=== PATIENT | female | born 2000 | race Caucasian/White ===

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

== ENCOUNTER 2020-05-19 20:09 | Inpatient (IN) | payer MEDICAID, SELFPAY ==
[2020-05-19] VITALS (8 sets, daily range): BP systolic 112–135; BP diastolic 53–72; PULSE 67–126; TEMP 36.1–36.8; O2SAT 96–99; BMI 34.5
[2020-05-19] MEDS: Lactated Ringers 500 ML 999 ML IV (20:30)
[2020-05-19 20:53] LABS: Absolute Lymphocyte Count 1.88 X10^3/uL (0.83-4.51); Basophil# 0.02 X10^3/uL; Basophil% 0.2 % (0-1); Eosinophil# 0.08 X10^3/uL; Eosinophils% 0.9 % (0-5); Hematocrit 33.7 % (37-47); Hemoglobin 11.1 g/dL (12.0-15.0); Lymphocyte # 1.88 X10^3/ul (4.0); Lymphocyte % 21.4 % (19-41); Mean Corp Hgb Conc 32.9 g/dL (32-36); Mean Corpuscular Hgb 29.8 pg (27.0-32.0); Mean Corpuscular Volume 90.6 fL (81-99); Mean Platelet Vol. 10.7 fl (6.2-12.0); Monocyte# 0.79 X10^3/uL; NRBC Flagged by Analyzer 0 % (0-5); Neutrophil # 5.96 X10^3/uL (2.7-7.7); Neutrophil % 67.9 % (47-70); Platelet Count 150 K/mm3 (150-450); RBC Distribution Width CV 13.5 % (11.6-14.6); RBC Distribution Width SD 44.6 fl (35.1-43.9); Red Blood Count 3.72 M/mm3 (4.2-5.4); White Blood Count 8.8 K/mm3 (4.4-11.0)
[2020-05-19] MEDS: Lactated Ringers 1,000 ML 50 ML IV (21:01)
--- NOTE | 2020-05-19 21:19 | PCM.HP.OB ---
- Problem List (1) 39 weeks gestation of Status: Acute (2) Spontaneous onset of labor Status: Acute History Date of Admission: 05/19/20 Final YESSY: 05/31/20 Gestational age: 38 Weeks and 2 Days History of this : This is a 20 year-old, G [2], P [0], at 38.2 weeks gestational age that arrived to unit in active labor. Denies loss of fluid, vaginal bleeding and stated positive movement. Stated back started hurting earlier today and it won't let up. course complicated by anemia. Allergies No Known Allergies Allergy (Verified 11/28/15 16:02) Home Medications: Home Medications Ibuprofen [Children's Advil] 1 - 2 tab PO BID 11/28/15 Docusate Sodium [Colace] 100 mg PO BID PRN PRN #10 capsule 12/04/15 Hydrocodone Bitart/Apap 5-325 [Eden 5/325] 1 - 2 tablet PO Q6H PRN PRN #60 tablet 12/04/15 proMETHazine tablet [Phenergan] 25 mg PO Q4H PRN PRN #10 tablet 12/04/15 Smoking Status: Former smoker Number of Fetus(es): 1 NST - FHR Rate Baby A Baseline: 135 Variability:: Moderate Accelerations:: 15 x 15 Decelerations:: None NST Reactive:: Yes FHR Category:: Category I Uterine Activity:: Irregular contractions. Difficult to trace due to patient moving around History Past Pregnancies: Past Pregnancies Delivery Date Name GA/ Weeks Outcome Route Wt Infant Sex Labor Length Anesthesia Delivery Location Provider FOB Labs: A positive Rubella Immune Hb negative HIV NR RPR- NR HIV- NR GBS negative GC/CH= negative Expected Delivery Method: Spontaneous Vaginal Review of Systems Constitutional: Denies: Chills, Fever, Weight Change Cardiovascular: Denies: Chest Pain, Palpitations Respiratory: Denies: Cough, Shortness of breath at rest, Sputum production Gastrointestinal: Denies: Abdominal Pain, Nausea, Vomiting Genitourinary: Denies: Dysuria Neurological: Reports: Focal weakness. Denies: Headaches, Numbness, Tingling Physical Exam Vitals: Vital Signs Temp Pulse BP Pulse Ox 98.2 F 75 128/72 H 99 05/19/20 20:23 05/19/20 20:23 05/19/20 20:23 05/19/20 20:23 General: Alert, Oriented x3, No apparent distress Cardiovascular: Regular rate Lungs: Normal air movement Abdomen: Gravid Neurological: Cranial nerves II-XII grossly intact LONGWALL SHEARER OPERATOR: Normal external genitalia Estimated gestational size: Appropriate for gestational size Presentation: Cephalic Cervix Dilation (cm): 7 Station: -1 Effacement (%): 80 Assessment/Plan All Active Problems 39 weeks gestation of (Acute) Spontaneous onset of labor (Acute) This is a 20 year-old, G [2], P [0], at 38. 2 weeks gestational age in active labor. A: Active labor Category 1 tracing P: Admit to labor and delivery Routine labs GBS negative IV fluids per protocol Covid19 Rapid swab Pain medications or epidural if patient desires A.R.O.M for moderate amount of clear fluid
[2020-05-19] MEDS: Oxytocin 30 units/NS 500 ml 30 UNITS/500 ML IV.SOLN 334 UNITS IV (23:27)
[2020-05-19] MEDS: Methylergonovine 0.2 MG/ML Ampul IM (23:40)
[2020-05-19] MEDS: miSOPROStol 200 MCG Tablet 1000 MCG RECTAL (23:46)
[2020-05-19] MEDS: Carboprost Tromethamine 250 MCG/ML Ampul IM (23:48)
[2020-05-20] VITALS (48 sets, daily range): BP systolic 99–131; BP diastolic 55–73; PULSE 60–84; RESP 16; TEMP 36–37.8; O2SAT 94–100
--- NOTE | 2020-05-20 00:01 | PCM.PN.BLA ---
Progress Note i was present for delivery- placenta delivered and evaluated- appeared to be intact. vagina and cervix evaluated- small 1st degree laceration appreciated superior to clitoris- repaired with a figure of eight on 3-0 rapide. Good hemostasis. Cervix intact. still with moderate bleeding and atony- Methergine 0.2mg IM given followed by Cytotec 1000mc PER rectum, followed by Hemabate 250mcg in given in lower uterine segment. continued pitocin and uterine massage, bleeding began to slow. bedside ultrasound performed- Does not appear to have Retained POC. Will check CBC in morning. Bleeding stable prior to me leaving hospital. STROKE Vital Signs/Narrative: Vital Signs Temp Pulse BP Pulse Ox 05/19/20 23:59 82 96 05/19/20 23:57 126 H 112/53 L 05/19/20 23:54 81 97 05/19/20 23:49 98 98 05/19/20 23:48 92 135/60 H 05/19/20 21:55 72 127/63 H 05/19/20 21:54 97.0 F L 67 96 05/19/20 20:23 98.2 F 75 128/72 H 99
--- NOTE | 2020-05-20 00:10 | PCM.OPRPT ---
Problem List (1) 39 weeks gestation of Status: Acute (2) Spontaneous onset of labor Status: Acute Report of Operation Date of Procedure: 05/20/20 Pre-Operative Diagnosis: Term gestation, Spontaneous labor, anemia Post-Operative Diagnosis: same, viable male infant Surgery/Procedure Performed:: Vaginal Delivery Maternal Presentation: Active Labor Patient is a at 38.2 weeks gestation presented in spontaneous, active labor Amniotic Membrane Rupture Type: Artificial Amniotic Fluid Description: Clear Gestational age: 38.2 Date of Procedure: 05/20/20 Pre-Operative Diagnosis: Term, spontaneous labor Post-Operative Diagnosis: same, viable male Surgery/ Procedure Performed: Spontaneous Vaginal Delivery Type of Anesthesia: None Description of Procedure: of live male born without difficulty. Good maternal pushing efforts delivered head. Gentle downward traction with delivery of anterior shoulder followed by rest of body delivered in somersault maneuver due to tight nuchal cord. Vigorous placed on maternal abdomen. Delayed cord clamping performed. Placenta delivered spontaneously with assistance from Dr Waller. Dr. Waller present in room and delivered placenta (see progress note). Patient was given Methergine 0.2 mg IM x1, Cytotec 1000 mcg VT and Hemabate 250 mcg IM for uterine atony. Hemostasis occurred. Will order CBC for morning. Presentation: KEYANA Placental Delivery Description: Spontaneous, Expressed Placenta Disposition: [facility] Cord Vessel Description: 3 Vessels Cord Entanglement: Around neck x 1, tight Estimated Blood Loss: 600 Infant A gender: Male - [place] (1 minute): 9 (5 minute): 9 Episiotomy Description: None Laceration: Vaginal Extension/lac, 1st degree Medications given after delivery: IV Pitocin, IM Methergin, IM Hemabate, - - Cytotec 1000mcg VT Complications: None - Uterine atony
[2020-05-20] MEDS: Oxytocin 30 units/NS 500 ml 30 UNITS/500 ML IV.SOLN 167 UNITS IV (00:11)
[2020-05-20] MEDS: Acetaminophen 500 MG Tablet 1000 MG PO (01:18)
[2020-05-20 06:50] LABS: Hematocrit 34.7 % (37-47); Hemoglobin 11.1 g/dL (12.0-15.0); Mean Corpuscular Hgb 29.3 pg (27.0-32.0); Mean Corpuscular Volume 91.6 fL (81-99); Mean Platelet Vol. 10.8 fl (6.2-12.0); Platelet Count 159 K/mm3 (150-450); RBC Distribution Width CV 13.4 % (11.6-14.6); RBC Distribution Width SD 45.3 fl (35.1-43.9); Red Blood Count 3.79 M/mm3 (4.2-5.4); White Blood Count 16.3 K/mm3 (4.4-11.0)
--- NOTE | 2020-05-20 07:58 | PCM.PN.OB ---
Patient Problems: Active and Suspected Problems 39 weeks gestation of (Acute) Spontaneous onset of labor (Acute) Subjective: Seen at bedside. Patient sleeping sound. Feeling sore but pain controlled. infant. Voiding without difficulty Lochia decreased. Not passing any clots. - Physical Exam Vitals/I&O's: Vital Signs Temp Pulse Resp BP Pulse Ox 100.0 F H 70 16 128/65 H 97 05/20/20 07:52 05/20/20 07:52 05/20/20 07:52 05/20/20 07:52 05/20/20 07:52 Oxygen Delivery Method Room Air Weight: 227 lb 1.218 oz Body Mass Index (BMI) 34.5 Intake and Output for Last 24 Hours 05/18/20 05/19/20 05/20/20 23:59 23:59 23:59 Intake Total 694.04 / 694.04 927.63 / 927.63 Balance 694.04 / 694.04 927.63 / 927.63 General: Alert Lungs: Normal air movement Cardiovascular: Regular rate Abdomen: Soft, Non Tender Neurological: Cranial nerves II-XII grossly intact Psych/Mental Status: Normal Affect, Appropriate Laboratory Results 05/19/20 20:30: WBC 8.8, RBC 3.72 L, Hgb 11.1 L, Hct 33.7 L, MCV 90.6, MCH 29.8, MCHC 32.9, RDW Std Deviation 44.6 H, RDW Coeff of Ord 13.5, Plt Count 150, MPV 10.7, Immature Gran % (Auto) 0.600, Neut % (Auto) 67.9, Lymph % (Auto) 21.4, [place] % (Auto) 9.0, Eos % (Auto) 0.9, Baso % (Auto) 0.2, Absolute Neuts (auto) 6.0, Absolute Lymphs (auto) 1.88, Nucleated RBC % 0 05/19/20 20:30: Blood Type A POSITIVE, Antibody Screen NEGATIVE 05/19/20 21:00: COVID-19 (JOSSY) Not Detected 05/20/20 06:40: WBC 16.3 H, RBC 3.79 L, Hgb 11.1 L, Hct 34.7 L, MCV 91.6, MCH 29.3, MCHC 32.0, RDW Std Deviation 45.3 H, RDW Coeff of Rod 13.4, Plt Count 159, MPV 10.8 Current Medications Acetaminophen (Tylenol) 1,000 mg PO Q8H PRN PRN PRN Reason: Pain Score 1-3/10 Last Admin: 05/20/20 01:18 Dose: 1,000 mg Documented by: Bisacodyl (Dulcolax) 10 mg RECTAL UD PRN PRN Reason: If no BM Dibucaine (Dibucaine) 1 applic TOPICAL TID PRN PRN; Protocol PRN Reason: Discomfort Hydrocortisone (Hytone) 1 applic TOPICAL TID PRN PRN; Protocol PRN Reason: Discomfort Methylergonovine Maleate (Methergine) 0.2 mg IM X1 PRN PRN Reason: Excess bleeding/uterine atony Last Admin: 05/19/20 23:40 Dose: 0.2 mg Documented by: Naproxen (Naprosyn) 500 mg PO Q8H PRN PRN PRN Reason: Pain Score 1-3/10 Ondansetron HCl (Zofran) 4 mg IV Q4H PRN PRN PRN Reason: Nausea Oxycodone HCl (Oxyir) 5 - 10 mg PO Q4H PRN PRN PRN Reason: Pain Score 4-10/10 Senna/Docusate Sodium (Senokot-S, Ashlyn-Colace) 1 - 2 tablet PO DAILY PRN PRN PRN Reason: Constipation Simethicone (Mylicon) 80 mg PO PCHS PRN PRN Reason: Indigestion/Stomach pain Sodium Chloride () 5 - 15 ml IV UD PRN PRN Reason: SALINE FLUSH Medical Necessity - Tobacco Use Smoking Status: Former smoker Assessment/Plan All Active Problems 39 weeks gestation of (Acute) Spontaneous onset of labor (Acute) A/P PPD #1 Routine care Pain management Anticipate discharge home
[2020-05-21 00:10] VITALS: BP 116/55; PULSE 73; TEMP 36.4
[2020-05-21 00:18] VITALS: BP 116/55; PULSE 73; RESP 16; TEMP 36.4
[2020-05-21 04:20] VITALS: BP 111/56; PULSE 70; TEMP 37.3; TEMP 37.4
[2020-05-21 04:24] VITALS: BP 111/50; PULSE 70; RESP 16; TEMP 36.3
[2020-05-21 08:30] VITALS: BP 120/66; PULSE 68; RESP 16; TEMP 36.3
--- NOTE | 2020-05-21 08:50 | PCM.PN.OB ---
Patient Problems: Active and Suspected Problems 39 weeks gestation of (Acute) Spontaneous onset of labor (Acute) Subjective: pain well controlled, average lochia - Physical Exam Vitals/I&O's: Vital Signs Temp Pulse Resp BP Pulse Ox 97.4 F L 70 16 111/50 L 100 05/21/20 04:24 05/21/20 04:24 05/21/20 04:24 05/21/20 04:24 05/20/20 15:35 Oxygen Delivery Method Room Air Weight: 103 kg Body Mass Index (BMI) 34.5 Intake and Output for Last 24 Hours 05/19/20 05/20/20 05/21/20 23:59 23:59 23:59 Intake Total 694.04 / 694.04 927.63 / 927.63 Output Total 300 / 300 Balance 694.04 / 694.04 627.63 / 627.63 General: Alert, Cooperative, No apparent distress Current Medications Acetaminophen (Tylenol) 1,000 mg PO Q8H PRN PRN PRN Reason: Pain Score 1-3/10 Last Admin: 05/20/20 01:18 Dose: 1,000 mg Documented by: Bisacodyl (Dulcolax) 10 mg RECTAL UD PRN PRN Reason: If no BM Dibucaine (Dibucaine) 1 applic TOPICAL TID PRN PRN; Protocol PRN Reason: Discomfort Hydrocortisone (Hytone) 1 applic TOPICAL TID PRN PRN; Protocol PRN Reason: Discomfort Methylergonovine Maleate (Methergine) 0.2 mg IM X1 PRN PRN Reason: Excess bleeding/uterine atony Last Admin: 05/19/20 23:40 Dose: 0.2 mg Documented by: Naproxen (Naprosyn) 500 mg PO Q8H PRN PRN PRN Reason: Pain Score 1-3/10 Ondansetron HCl (Zofran) 4 mg IV Q4H PRN PRN PRN Reason: Nausea Oxycodone HCl (Oxyir) 5 - 10 mg PO Q4H PRN PRN PRN Reason: Pain Score 4-10/10 Senna/Docusate Sodium (Senokot-S, Ashlyn-Colace) 1 - 2 tablet PO DAILY PRN PRN PRN Reason: Constipation Simethicone (Mylicon) 80 mg PO PCHS PRN PRN Reason: Indigestion/Stomach pain Sodium Chloride () 5 - 15 ml IV UD PRN PRN Reason: SALINE FLUSH Medical Necessity - Tobacco Use Smoking Status: Former smoker Assessment/Plan All Active Problems 39 weeks gestation of (Acute) Spontaneous onset of labor (Acute) ppd #2 S/P Doing well routine care and doing well
--- NOTE | 2020-05-21 08:51 | DCINST_ITS ---
Discharge Diet: No Restrictions Discharge Activity: Return to Normal Activity, May not drive while taking narcotic pain medications., May Shower May resume sexual activity in: 4-6 weeks Additional Activity Instructions:: Nothing in the vagina for 4-6 weeks. You may return to work/school in 6 weeks. Call your doctor if your incision/area has: Continuous Slow Oozing, Sudden Increased Bleeding, Increased Pain/ Swelling, Increased Redness, Foul Smelling Discharge Additional Instructions: If you experience any of the following, contact your healthcare provider. * Bleeding that soaks a pad every hour for 2 hours * Fever 100.4 or higher * Unrelieved incision or abdominal pain * Swelling, redness, discharge or bleeding from your incision or episiotomy site * Your incision begins to separate * Problems urinating (including inability to urinate or burning while urinating). * Visual changes * Severe headache * Flu-like symptoms * Pain or redness in one of both of your breasts * Pain, warmth, tenderness or swelling in your legs, especially the calf area * Frequent nausea and vomiting * Symptoms of depression or anxiety If you experience any of the following, call 911 or go to the nearest Emergency Room. * Chest pain * Problems breathing * Seizure activity * Partial or complete paralysis of a body part, slurred speech, weakness or drooping of the face, or a sudden inability to walk or hold your balance Allergies/Adverse Reactions: Allergies No Known Allergies Allergy (Verified 05/19/20 21:42) Please Follow Up With: Deisy Ramirez MD - [phone] When: Call to make an appointment with your doctor in 1-2 and 6 weeks or as needed. These can be virtual visits. Primary Care Physician: Care Physician,No Primary [Primary Care Provider] - Test Results: Test results from this visit will be discussed in further detail at your follow- up appointment, if applicable.
--- NOTE | 2020-05-21 08:51 | PCM.DCVAG ---
Discharge Diet: No Restrictions Discharge Activity: Return to Normal Activity, May not drive while taking narcotic pain medications., May Shower May resume sexual activity in: 4-6 weeks Additional Activity Instructions:: Nothing in the vagina for 4-6 weeks. You may return to work/school in 6 weeks. Call your doctor if your incision/area has: Continuous Slow Oozing, Sudden Increased Bleeding, Increased Pain/ Swelling, Increased Redness, Foul Smelling Discharge Additional Instructions: If you experience any of the following, contact your healthcare provider. Bleeding that soaks a pad every hour for 2 hours Fever 100.4 or higher Unrelieved incision or abdominal pain Swelling, redness, discharge or bleeding from your incision or episiotomy site Your incision begins to separate Problems urinating (including inability to urinate or burning while urinating). Visual changes Severe headache Flu-like symptoms Pain or redness in one of both of your breasts Pain, warmth, tenderness or swelling in your legs, especially the calf area Frequent nausea and vomiting Symptoms of depression or anxiety If you experience any of the following, call 911 or go to the nearest Emergency Room. Chest pain Problems breathing Seizure activity Partial or complete paralysis of a body part, slurred speech, weakness or drooping of the face, or a sudden inability to walk or hold your balance Allergies/Adverse Reactions: Allergies No Known Allergies Allergy (Verified 05/19/20 21:42) Please Follow Up With: Deisy Ramirez MD - [phone] When: Call to make an appointment with your doctor in 1-2 and 6 weeks or as needed. These can be virtual visits. Primary Care Physician: Care Physician,No Primary [Primary Care Provider] - Test Results: Test results from this visit will be discussed in further detail at your follow-up appointment, if applicable.
[2020-05-21 08:57] VITALS: BP 120/66; PULSE 73; TEMP 36.3
[2020-05-21] MEDS: Dibucaine 30 GM Tube 1 APPLIC TOPICAL (09:10)
== END 2020-05-21 11:15 | disposition home or self-care (01) | DRG 560 ==
PROVIDERS: Admitting Provider Advanced Practice Midwife; Visit Provider Advanced Practice Midwife
DX: O99.02 Anemia complicating childbirth (principal); D64.9 Anemia, unspecified; O69.1XX0 Labor and delivery complicated by cord around neck, with compression, not applicable or unspecified; O62.2 Other uterine inertia; O70.0 First degree perineal laceration during delivery; Z3A.39 39 weeks gestation of pregnancy; Z37.0 Single live birth; Z87.891 Personal history of nicotine dependence
CPT/HCPCS: 59025; 85025; 85027; 86850; 86900; 86901; 87635; 99218; G2023; J7120; G0378; U0003

== ENCOUNTER 2022-06-04 08:44 | Emergency (ER) | payer OTHER, MEDICAID, SELFPAY ==
[2022-06-04 08:44] VITALS: BP 125/77; PULSE 64; RESP 16; TEMP 36.4; O2SAT 100; BMI 23.9
--- NOTE | 2022-06-04 09:20 | EX.ED.DYSGE1 ---
HPI History of Present Illness Chief Complaint: Lower Extremity Injury Narrative Narrative: Patient presents with left knee pain after twisting the wrong way and this is been ongoing for a few days, as it is difficult to climb steps as well as bend down on her knees to change her sense diaper. No other trauma. There is no radicular symptoms are any other injuries. PFSH PFSH Home Medications naproxen 500 mg tablet 500 mg PO BID #14 tabs 06/04/22 [Rx Last Taken Unknown] Allergy/AdvReac Type Severity Reaction Status Date / Time No Known Allergies Allergy Verified 06/04/22 08:45 Social History Smoking Status: Never smoker ROS ROS ED ROS Narrative Past medical history: none Medications: Reviewed Social history: Noncontributory Review of systems: Musculoskeletal: Knee pain as in HPI Skin: No abrasions or lacerations Neurological: No weakness or paresthesias Hematologic: No easy bleeding or easy bruising EXAM Physical Exam Narrative Exam Narrative: Physical exam General: Patient does not appear in significant distress . Head: Normocephalic, Atraumatic Neck: No C-spine tenderness Cardiovascular: Normal distal pulses Back: Nontender, Normal Inspection. Extremities: Left knee shows medial tenderness over the medial meniscus region. There is no other bony tenderness. No laxity on anterior posterior medial or lateral stressors. Patient has more pain with valgus then varus stressors. Skin: No abrasions, no lacerations Neurological: Normal strength and sensation Const Vital Signs: 06/04/22 08:44 Temperature 97.6 F L Temperature Source Temporal Pulse Rate 64 Respiratory Rate 16 Blood Pressure 125/77 H Blood Pressure Mean 93 Pulse Ox 100 Oxygen Delivery Method Room Air MDM MDM MDM Narrative Medical decision making narrative: Patient likely has a meniscal injury, I do not believe an x-ray would be necessary emergently at this time. She can follow-up with her PCP and get physical therapy if this does not improve in a few days. Otherwise I will place the patient on NSAIDs and should be discharged in stable condition. Discharge Plan Triage Chief Complaint: Lower Extremity Injury ED Provider: Ted Huynh Dx/Rx/DC Orders Clinical Impression: Knee strain, Acute medial meniscal injury of knee Instructions: How Your Knee Works, ED Knee Sprain Prescriptions: New naproxen 500 mg tablet 500 mg PO BID Qty: 14 0RF Primary Care Provider: Care Physician,No Primary Referrals: Karely Moreno MD [STAFF PHYSICIAN] - 3-5 Days Care Physician,No Primary [Primary Care Provider] - Disposition Disposition: Home, Self Care
== END 2022-06-04 09:43 | disposition home or self-care (01) ==
PROVIDERS: Emergency Provider Emergency Medicine; Visit Provider Emergency Medicine
DX: S83.242A Other tear of medial meniscus, current injury, left knee, initial encounter (principal); X50.1XXA Overexertion from prolonged static or awkward postures, initial encounter
CPT/HCPCS: 99282

== ENCOUNTER → 2022-06-27 | Outpatient (CLI) | payer OTHER, MEDICAID, SELFPAY ==
--- NOTE | 2022-06-27 10:58 | MRI_ITS ---
STUDY: MRI LEFT KNEE REASON FOR EXAM: Left medial knee pain, left knee injury 2 weeks ago. TECHNIQUE: Standardized fat and water weighted pulse sequences were obtained in all 3 orthogonal planes. COMPARISON: Radiographs 06/09/2022. FINDINGS: There is an oblique tear of the inferior articular surface of the posterior horn of the medial meniscus (proton-density sagittal images 10-16). Normal hyaline cartilage of the medial femorotibial compartment. Normal medial femoral condyle and tibial plateau. Normal medial collateral ligamentous complex (MCL). Normal distal semimembranosus, gracilis and semitendinosus tendons. Normal lateral meniscus. Normal hyaline cartilage of the lateral femorotibial compartment. Normal lateral femoral condyle and tibial plateau. Normal proximal tibiofibular articulation. Normal lateral collateral (fibular) ligament. Normal popliteus tendon. Normal biceps femoris tendon. Normal anterior cruciate ligament (ACL). Normal posterior cruciate ligament (PCL). Normal congruent patellofemoral articulation. Normal hyaline cartilage of the patellofemoral compartment. Normal medial and lateral patellar retinaculum. Normal visualized quadriceps tendon. Normal patellar tendon. Normal Hoffa''s fat pad. There is a minimal volume of fluid in the knee joint. The soft tissues are unremarkable. The otherwise visualized osseous structures are unremarkable. MRI/Lower Ext Joint Only (Routine) IMPRESSION: Medial meniscal tear. Electronically Signed: Morales Davis MD at 12:21 EDT ,
== END | disposition home or self-care (01) ==
LOC: MRI 10:58
PROVIDERS: Visit Provider Orthopaedic Surgery
DX: S83.242A Other tear of medial meniscus, current injury, left knee, initial encounter (principal); X58.XXXA Exposure to other specified factors, initial encounter
CPT/HCPCS: 73721

== ENCOUNTER 2023-05-23 20:28 | Outpatient (CLI) | payer MEDICAID, SELFPAY ==
[2023-05-23 20:43] VITALS: BP 116/66; PULSE 80
[2023-05-23 20:47] VITALS: TEMP 37.4; O2SAT 99
[2023-05-23 20:50] VITALS: BMI 29.9
[2023-05-23 21:22] LABS: ROM Internal Control Test YES-OK TO RESULT pt. (Internal QC); ROM Patient Test Negative (Negative); Record Kit Lot#, ROM+ K1374
[2023-05-23 21:35] LABS: Mucous, Urine 0 SEEN /hpf (<or=2+)
[2023-05-23 21:43] LABS: Color, Urine Yellow (Yellow); Glucose, Dipstick Normal (Normal); Ketone-Dipstick 50 mg/dl (Negative); Leukocyte Esterase-Dipstick 500 /ul (Negative); Nitrite-Dipstick Negative (Negative); Occult Blood-Urine 250 /ul (Negative); Protein-Dipstick 30 mg/dl (Negative); Urine Bilirubin Dipstick Negative (Negative); Urine Clarity Cloudy (Clear); Urine Urobilinogen Normal (Normal)
[2023-05-23 21:45] LABS: Bacteria 1+ /hpf (None Seen); Red Blood Cells-Urine 10-25 SEEN /hpf (0-5); Squamous Epithelial Cells - UA 0-5 SEEN /hpf (5-10); White Blood Cells 10-25 SEEN /hpf (0-5)
[2023-05-23] MEDS: LACTATED RINGERS 500 ML 999 ML IV (21:45)
[2023-05-23 22:11] VITALS: TEMP 36.9
[2023-05-23] MEDS: Cephalexin 250 MG Capsule PO (22:11)
--- NOTE | 2023-05-24 06:16 | OB.TRI.NOTE ---
HPI - General General Date of Admission: 05/24/23 Date of Service: 05/24/23 Chief Complaint: LOF HPI Narrative PAU MILTON, is a 23 F who presents because she thought she was leaking fluid overnight. Having urinary urgency and frequency and some pelvic discomfort. No fevers, chills, vomiting. No ctx, vb, lof. Good FM. PFSH PFSH Home Medications ferrous sulfate 325 mg (65 mg iron) tablet (iron) 325 mg PO BID anemia 05/23/23 [History Last Taken 05/23/23] [id number] 1 mg tablet 1 tab PO DAILY pregnacny 05/23/23 [History Last Taken 05/22/23] Allergy/AdvReac Type Severity Reaction Status Date / Time No Known Allergies Allergy Verified 06/09/22 08:28 Social History Smoking Status: Never smoker History Elective abortions Hx Para 0 Spontaneous abortions Hx # Term Pregnancies Ectopic pregnancies Hx # Pregnancies Multiple births # of living children NST FHR Rate Baby A Baseline: 120 Variability:: Moderate Accelerations:: 15 x 15 Decelerations:: None NST Reactive:: Yes Uterine Activity:: initially ctx q 4 min then spaced apart Assessment & Plan (1) 36 weeks gestation of : PLAN: Likely UTI given urine dip. Start Keflex. Send urine cx. Ctx's improved after fluid bolus and pt comfortable, and not feeling the ctx's. NST reactive. D/c home. (2) Urinary urgency:
== END 2023-05-23 23:43 | disposition home or self-care (01) ==
LOC: WPOUT 20:33 → WP 20:34
PROVIDERS: Referring Provider Obstetrics & Gynecology; Visit Provider Obstetrics & Gynecology
DX: O99.891 Other specified diseases and conditions complicating pregnancy (principal); R39.15 Urgency of urination; Z3A.36 36 weeks gestation of pregnancy
CPT/HCPCS: 96365; 59025; 59050; 81001; 84112; 87086; 87088; 99221; J7120; G0378

== ENCOUNTER 2023-06-09 17:40 | Inpatient (IN) | payer MEDICAID, SELFPAY ==
[2023-06-09] VITALS (16 sets, daily range): BP systolic 108–130; BP diastolic 59–76; PULSE 64–81; TEMP 36.2–36.8; O2SAT 97–100; BMI 30.2
[2023-06-09 18:29] LABS: Absolute Lymphocyte Count 1.86 X10^3/uL (0.83-4.51); Absolute Neutrophil Count 9.6 X10^3/uL (2.0-7.7); Basophil# 0.04 X10^3/uL; Basophil% 0.3 % (0-1); Eosinophil# 0.09 X10^3/uL; Eosinophils% 0.7 % (0-5); Hematocrit 32.3 % (37-47); Hemoglobin 10.3 g/dL (12.0-15.0); Lymphocyte # 1.86 X10^3/ul (0.83-4.51); Lymphocyte % 14.8 % (19-41); Mean Corp Hgb Conc 31.9 g/dL (32-36); Mean Corpuscular Hgb 28.4 pg (27.0-32.0); Mean Platelet Vol. 11.2 fl (6.2-12.0); Monocyte# 0.89 X10^3/uL; Monocyte% 7.1 % (0-10); NRBC Flagged by Analyzer 0 % (0-5); Neutrophil # 9.62 X10^3/uL (2.7-7.7); Neutrophil % 76.6 % (47-70); Platelet Count 168 K/mm3 (150-450); RBC Distribution Width CV 13.4 % (11.6-14.6); RBC Distribution Width SD 43.4 fl (35.1-43.9); Red Blood Count 3.63 M/mm3 (4.2-5.4); White Blood Count 12.6 K/mm3 (4.4-11.0)
[2023-06-09 19:22] LABS: Syphilis Antibodies Non-reactive
--- NOTE | 2023-06-09 21:02 | PCM.HP.OB ---
HPI - General General Date of Admission: 06/09/23 Date of Service: 06/09/23 HPI Narrative PAU MILTON, is a 23 F who presents with ctxs. Maternal Data Information Final YESSY: 06/17/23 Gestational age: 38&6 PFSH PFSH Home Medications ferrous sulfate 325 mg (65 mg iron) tablet (iron) 325 mg PO BID anemia 05/23/23 [History Last Taken 06/09/23] [id number] 1 mg tablet 1 tab PO DAILY pregnacny 05/23/23 [History Last Taken 06/09/23] Allergy/AdvReac Type Severity Reaction Status Date / Time No Known Allergies Allergy Verified 06/09/23 16:38 Surgical History (Updated 06/09/23 @ 18:25 by Adrianne Deluca) H/O knee surgery Social History Smoking Status: Former smoker History Elective abortions Hx Para 1 Spontaneous abortions Hx # Term Pregnancies Ectopic pregnancies Hx # Pregnancies Multiple births # of living children NST FHR Rate Baby A Baseline: 140 Variability:: Moderate Accelerations:: 15 x 15 Decelerations:: None Uterine Activity:: Q2-3 minutes Vital Signs Vital Signs Vital Signs: 06/09/23 16:35 06/09/23 16:35 06/09/23 16:35 Temperature 97.7 F L Temperature Source Temporal Pulse Rate Blood Pressure BP Systolic BP Diastolic Pulse Ox 97 06/09/23 16:35 06/09/23 16:48 06/09/23 16:48 Temperature Temperature Source Temporal Pulse Rate 76 Blood Pressure 126/76 H BP Systolic 126 BP Diastolic 76 Pulse Ox 06/09/23 16:35 06/09/23 16:35 06/09/23 18:44 Temperature 97.7 F L Temperature Source Pulse Rate Blood Pressure 118/70 BP Systolic 118 BP Diastolic 70 Pulse Ox 98 06/09/23 18:44 06/09/23 18:44 06/09/23 18:44 Temperature 97.1 F L Temperature Source Pulse Rate 75 Blood Pressure BP Systolic BP Diastolic Pulse Ox 100 06/09/23 19:21 06/09/23 19:21 06/09/23 19:21 Temperature Temperature Source Temporal Pulse Rate 73 Blood Pressure 121/67 H BP Systolic 121 BP Diastolic 67 Pulse Ox 06/09/23 19:21 07/11/23 20:08 06/09/23 20:12 Temperature 97.7 F L Temperature Source Temporal Pulse Rate Blood Pressure 111/61 BP Systolic 111 BP Diastolic 61 Pulse Ox 06/09/23 20:12 06/09/23 20:08 Temperature 98.1 F Temperature Source Pulse Rate 75 Blood Pressure BP Systolic BP Diastolic Pulse Ox Weight Weight: 205 lb 2 oz Body Mass Index (BMI) 30.2 Physical Exam Const alert, oriented x3 and no apparent distress GI soft to palpation, non-tender and non-distended Inspection: gravid external exam normal Narrative: cvx - 7/80/0, AROM clear fluid Labs Labs Labs: Blood Type A POSITIVE Antibody Screen NEGATIVE Hct 32.3 % (37-47) L Hgb 10.3 g/dL (12.0-15.0) L Syphilis Total Ab Non-reactive VZV IgG Antibody 1542 index (Immune >165) Rubella IgG Antibody Reactive (Nonreactive) Rhogam given: No Assessment & Plan (1) Placental abnormality in third trimester: COMMENT: @ 38&6 (patient with placental lakes on US) (2) Anemia affecting : QUALIFIERS: Trimester: third trimester Qualified Code(s): O99.013 - Anemia complicating , third trimester PLAN: Plan Admit to L&D Expectant management GBS negative Pain - declines epidural EFW - less than 4500g, patient with adequate pelvis
[2023-06-09] MEDS: Lactated Ringers 1,000 ML 50 ML IV (21:37)
[2023-06-09] MEDS: Oxytocin 10 UNITS/ML Vial IM (22:14)
[2023-06-09] MEDS: Oxytocin 15 Units/NS 250ml 15 UNITS/250 ML IV.SOLN 83 UNITS IV (22:14)
[2023-06-09] MEDS: Ketorolac 30 MG/ML Syringe IV (22:20)
--- NOTE | 2023-06-09 22:32 | EX.PCM.OBRPT ---
Maternal Data Information Final YESSY: 06/17/23 Gestational age: 38&6 Vaginal Delivery Maternal Presentation Maternal Presentation: Active Labor Operative Information Date of Procedure: 06/09/23 Pre-Operative Diagnosis: Labor Post-Operative Diagnosis: Labor Surgery / Procedure Performed: Spontaneous Vaginal Delivery Type of Anesthesia: None Estimated Blood Loss: 350ml Findings Description of Procedure: Patient draped when C/C/+2. She pushed well to deliver the head. head gently guided to allow delivery of anterior and posterior shoulders. No excess traction placed on head. Body delivered and 3VC clamped & cut in delayed fashion. Placenta delivered with gentle traction and good uterine tone obtained. Presentation: KEYANA Amniotic Membrane Rupture Type: Artificial Amniotic Fluid Description: Clear Placental Delivery Description: Expressed Placenta Disposition: [facility] Specimen(s) Removed: Placenta Cord Vessel Description: 3 Vessels Cord Entanglement: None Infant A Gender: Female (1 minute): 9 (5 minute): 9 Delayed Cord Clamping: Yes Post Vaginal Delivery Medications Given After Delivery: IV Pitocin and IM Pitocin Episiotomy Description: None Laceration: None Complication Complications: None
[2023-06-09] MEDS: Acetaminophen 500 MG Tablet PO (23:01)
[2023-06-10] VITALS (7 sets, daily range): BP systolic 104–123; BP diastolic 47–68; PULSE 68–85; RESP 15–20; TEMP 36.6–36.8; O2SAT 98
--- NOTE | 2023-06-10 06:35 | PCM.PN.OB ---
Subjective Subjective Denies complaints Objective Data Objective Data Vital Signs: Vital Signs Temp Pulse Resp BP Pulse Ox O2 Del Method 98.0 F 74 20 H 104/48 L 100 Room Air 06/09/23 22:27 06/10/23 05:08 06/10/23 05:08 06/10/23 05:08 06/09/23 18:44 06/10/23 05:08 Oxygen Delivery Method Room Air Weight: 205 lb 2 oz Body Mass Index (BMI) 30.2 Intake & Output: Intake and Output for Last 24 Hours 06/08/23 06/09/23 06/10/23 23:59 23:59 23:59 Intake Total 250 / 250 Output Total 350 / 350 500 / 500 Balance -320 / -320 -250 / -250 Lab / Micro Data 06/09/23 18:10 Labs: Laboratory Results - last 24 hr 06/09/23 18:10: WBC 12.6 H, RBC 3.63 L, Hgb 10.3 L, Hct 32.3 L, MCV 89.0, MCH 28.4, MCHC 31.9 L, RDW Std Deviation 43.4, RDW Coeff of Rod 13.4, Plt Count 168, MPV 11.2, Immature Gran % (Auto) 0.500, Neut % (Auto) 76.6 H, Lymph % (Auto) 14.8 L, Archuleta % (Auto) 7.1, Eos % (Auto) 0.7, Baso % (Auto) 0.3, Absolute Neuts (auto) 9.6 H, Absolute Lymphs (auto) 1.86, Nucleated RBC % 0, Syphilis Total Ab Non-reactive, Blood Type A POSITIVE, Antibody Screen NEGATIVE Physical Exam Const alert, oriented x3 and no apparent distress HEENT normocephalic GI soft to palpation, non-tender and non-distended GI Narrative: fundus firm, mid & below umbilicus Extremity normal to inspection and no calf tenderness Assessment & Plan (1) Vaginal delivery: COMMENT: PPD#1 PLAN: Plan Routine care
[2023-06-11 01:21] VITALS: BP 119/57; PULSE 72; RESP 15; TEMP 36.4; O2SAT 97
--- NOTE | 2023-06-11 07:48 | PCM.PN.OB ---
Subjective Subjective Patient seen at bedside. Ambulating and voiding without difficulty. Denies headache, dizziness, CP, or SOB. Lochia decreasing. Bottle feeding. Desires discharge home today. Objective Data Objective Data Vital Signs: Vital Signs Temp Pulse Resp BP Pulse Ox O2 Del Method 97.5 F L 72 15 119/57 L 97 Room Air 06/11/23 01:21 06/11/23 01:21 06/11/23 01:21 06/11/23 01:21 06/11/23 01:21 06/11/23 01:21 Oxygen Delivery Method Room Air Weight: 205 lb 2 oz Body Mass Index (BMI) 30.2 Intake & Output: Intake and Output for Last 24 Hours 06/09/23 06/10/23 06/11/23 23:59 23:59 23:59 Intake Total 250 / 250 Output Total 350 / 350 500 / 500 Balance -320 / -320 -250 / -250 Lab / Micro Data 06/09/23 18:10 ROS Eyes Eyes: Denies blurry vision, change in vision or spots in vision ENT HEENT: Denies dizziness or headache(s) Cardiovascular Cardiovascular: Denies abdominal pain, chest pain or dyspnea Respiratory/Chest Respiratory/Chest: Denies cough, dyspnea, shortness of breath at rest or shortness of breath with exertion Gastrointestinal Gastrointestinal: Denies abdominal pain, diarrhea or vomiting Genitourinary Genitourinary: Denies change in urinary stream, difficulty urinating or dysuria Musculoskeletal Musculoskeletal: Reports none Integumentary Integumentary: Denies rash Neurologic Neurologic: Denies dizziness, headache(s), memory loss or weakness Physical Exam Const alert and no apparent distress General Appearance: cooperative and comfortable Exam Limitations: no limitations HEENT normocephalic Eyes General Eye: normal appearance of both eyes Neck full ROM General: normal visual inspection Chest Chest: symmetrical chest wall rise Resp normal respiratory effort and normal air movement Effort and Inspection: symmetric chest movement Auscultation: clear to auscultation bilaterally Cardio regular rate and regular rhythm GI normal to inspection, nondistended, normoactive bowel sounds Back/Spine normal ROM Extremity full ROM and no calf tenderness General Extremity: normal exam except as noted Skin no rashes or lesions noted Neuro CN's II-XII intact bilaterally Psych mental status grossly normal Assessment & Plan (1) Vaginal delivery: PLAN: Plan PPD 2 Routine care D/C home with follow up in office
--- NOTE | 2023-06-11 07:50 | DCINST_ITS ---
Discharge Instructions Diet Discharge Diet: No restrictions Activity May resume sexual activity in: 6-8 weeks Weight Bearing Status: Weight bearing as tolerated Dressing / Incision Call your doctor if you observe: Fever of 101 or Higher, Inability to urinate, Using more than 1 pad per hour, Shortness of breath, Chest pain, Calf discomfort and Uncontrolled pain Follow Up Care Please Follow Up With: Angy Smith CNM When: 2 weeks/ 6 weeks in office Test Results: Test results from this visit will be discussed in further detail at your follow- up appointment, if applicable. Discharge Plan Admission Admit Date/Time: 06/09/23 17:40 Primary Reason for Your Visit: Labor and Delivery Attending Provider: Jayce Key Primary Care Provider: Care Physician,Yu Primary Discharge Orders/Prescriptions Prescriptions: No Action ferrous sulfate [iron] 325 mg (65 mg iron) Tablet 325 mg PO BID 1 mg Tablet 1 tab PO DAILY Referrals / Follow Up: Care Physician,No Primary [Primary Care Provider] - Disposition Disposition (needs filled in before D/C Order can be placed): Home, Self Care
[2023-06-11 09:27] VITALS: BP 111/57; PULSE 79; RESP 16; TEMP 36.4; O2SAT 98
== END 2023-06-11 10:10 | disposition home or self-care (01) | DRG 560 ==
LOC: WPOUT 17:47 → WP 17:47
PROVIDERS: Admitting Provider Obstetrics & Gynecology; Referring Provider Obstetrics & Gynecology; Visit Provider Obstetrics & Gynecology
DX: O99.02 Anemia complicating childbirth (principal); Z37.0 Single live birth; O43.893 Other placental disorders, third trimester; Z3A.38 38 weeks gestation of pregnancy; Z87.891 Personal history of nicotine dependence
CPT/HCPCS: 59025; 59050; 85025; 86780; 86850; 86900; 86901; 99221; J7120; G0378